=== PATIENT | male | born 1955 | race American Indian/Alaskan Native ===

== ENCOUNTER 2017-10-15 18:20 | Emergency (ER) | payer SELFPAY ==
[2017-10-15] MEDS ORDERED: NORCO 5/325 PO ONE (19:33)
[2017-10-15] MEDS ORDERED: BOOSTRIX IM ONE (19:33)
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
[2017-10-15 19:42] VITALS: BP 138/93
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
[2017-10-15] MEDS ORDERED: ANTIBIOTIC OINT TP ONE (20:00)
== END 2017-10-15 20:29 | disposition home or self-care (01) ==
LOC: ED 18:20
DX: S80.01XA Contusion of right knee, initial encounter (principal); S90.32XA Contusion of left foot, initial encounter; V03.19XA Pedestrian with other conveyance injured in collision with car, pick-up truck or van in traffic accident, initial encounter; Y93.89 Activity, other specified; Y92.89 Other specified places as the place of occurrence of the external cause; Y99.8 Other external cause status
CPT/HCPCS: 90471; 90715; 99284